=== PATIENT | male | born 1955 | race Caucasian/White ===

== ENCOUNTER 2017-05-25 02:12 | Inpatient (IN) | payer OTHER ==
[~2017-05-25] VITALS: Ht 182.9 cm; Wt 144.9 kg
[2017-05-25 03:09] LABS: BASOPHIL % 0.2 % (0-2); PLATELET COUNT 160 x10^3mcL (130-400)
[2017-05-25 03:10] LABS: CARBON DIOXIDE 27.1 mmol/L (21-32); CHLORIDE SERUM 107 mmol/L (98-107); CREATININE SERUM 0.9 mg/dL (0.7-1.3); GFR1 > 60 mL/min; GLUCOSE SERUM 96 mg/dL (74-106); POTASSIUM SERUM 4.1 mmol/L (3.5-5.1); SODIUM SERUM 145 mmol/L (136-145)
[2017-05-25 03:15] LABS: ALBUMIN 3.6 g/dL (3.4-5.0); ALKALINE PHOSPHATASE 109 U/L (46-116); ALT/SGPT 16 U/L (16-63); AST/SGOT 19 U/L (15-37); BILIRUBIN TOTAL 0.4 mg/dL (0.20-1.00); LIPASE 99 IU/L (73-393); TOTAL PROTEIN, SERUM 6.6 g/dL (6.4-8.2)
[2017-05-25] MEDS ORDERED: XARELTO20 M1 PO (04:28)
[2017-05-25] MEDS ORDERED: ZESTRIL20 MG PO (04:28)
[2017-05-25] MEDS ORDERED: METOPROLOL SUCC50 M2 PO (04:29)
[2017-05-25 05:42] LABS: MAGNESIUM 2.1 mg/dL (1.8-2.4); PHOSPHOROUS 3.4 mg/dL (2.5-4.9)
[2017-05-25 05:46] VITALS: BP 192/108
[2017-05-25 05:49] LABS: CHOLESTEROL/HDL RATIO 2.1
[2017-05-25 05:50] LABS: FREE T4 0.96 ng/dL (0.76-1.46); T4(THYROXINE) 5.8 ug/dL (4.7-13.3)
[2017-05-25] MEDS ORDERED: LASIX40 MG PO (05:52)
[2017-05-25 06:05] LABS: T3 TOTAL 0.87 ng/mL
[2017-05-25 09:49] LABS: microscopic required? NO
[2017-05-25 10:01] LABS: UA SPECIFIC GRAVITY 1.015 (1.005-1.035); urine erythrocyte NEGATIVE (NEGATIVE)
[2017-05-25 10:13] LABS: AMPHETAMINE QUAL UR NONE DETECTED (NEG <=1000)
[2017-05-25 17:11] VITALS: BP 156/87
[2017-05-25 21:38] LABS: AMPHETAMINE QUAL UR NONE DETECTED (NEG <=1000)
[2017-05-25 21:42] VITALS: BP 155/86
[2017-05-26 00:04] VITALS: BP 160/85
[2017-05-26 01:06] VITALS: BP 146/86
[2017-05-26 05:52] VITALS: BP 147/87
[2017-05-26 06:24] LABS: BASOPHIL % 0.2 % (0-2); PLATELET COUNT 149 x10^3mcL (130-400)
[2017-05-26 06:45] LABS: CALCIUM 8.2 mg/dL (8.5-10.1); CARBON DIOXIDE 23.9 mmol/L (21-32); CHLORIDE SERUM 109 mmol/L (98-107); CREATININE SERUM 0.9 mg/dL (0.7-1.3); GFR1 > 60 mL/min; GLUCOSE SERUM 112 mg/dL (74-106); POTASSIUM SERUM 3.9 mmol/L (3.5-5.1); SODIUM SERUM 142 mmol/L (136-145)
[2017-05-26 06:51] LABS: RED CELL DISTRIBUTION WIDTH 14.7 % (11.5-14.5)
[2017-05-26 10:12] VITALS: BP 146/77
[2017-05-26 11:38] VITALS: BP 146/77
== END 2017-05-26 13:32 | disposition home or self-care (01) | DRG 228 ==
LOC: ED 02:12 → DU 04:47
PROVIDERS: Emergency Medicine; Family Medicine; Surgery; ADMIT Internal Medicine
PROC: 0YU50JZ Supplement Right Inguinal Region with Synthetic Substitute, Open Approach (ICD-10-PCS; principal; 2017-05-25 09:30)
DX: K40.31 Unilateral inguinal hernia, with obstruction, without gangrene, recurrent (principal); N17.0 Acute kidney failure with tubular necrosis; I11.0 Hypertensive heart disease with heart failure; I50.42 Chronic combined systolic (congestive) and diastolic (congestive) heart failure; E66.01 Morbid (severe) obesity due to excess calories; I48.2 Chronic atrial fibrillation; E02 Subclinical iodine-deficiency hypothyroidism; Z98.84 Bariatric surgery status; Z95.0 Presence of cardiac pacemaker; Z87.442 Personal history of urinary calculi; Z79.01 Long term (current) use of anticoagulants; Z90.49 Acquired absence of other specified parts of digestive tract; Z68.41 Body mass index [BMI] 40.0-44.9, adult
CPT/HCPCS: 83880; 84439; 94150; C1781; G0480; J0330; J0360; J0690; J2250; J2270; J2405; J2543; J2704; J2710; J3010; J3490; J7030; J7120; Q0092; Q9967

== ENCOUNTER 2017-05-27 14:20 | Emergency (ER) | payer OTHER ==
[~2017-05-27] VITALS: Ht 182.9 cm; Wt 143.3 kg
[~2017-05-27 14:20] MED LIST: LASIX40 MG PO; METOPROLOL SUCC50 M2 PO; XARELTO20 M1 PO; ZESTRIL20 MG PO
[2017-05-27 19:43] VITALS: BP 133/93
== END 2017-05-27 19:43 | disposition home or self-care (01) ==
LOC: ED 14:20
DX: R60.0 Localized edema (principal); I11.0 Hypertensive heart disease with heart failure; I50.9 Heart failure, unspecified; E66.01 Morbid (severe) obesity due to excess calories; I48.2 Chronic atrial fibrillation; E03.9 Hypothyroidism, unspecified; Z95.0 Presence of cardiac pacemaker
CPT/HCPCS: Q0092

== ENCOUNTER 2017-07-17 04:00 | Inpatient (IN) | payer OTHER ==
[~2017-07-17] VITALS: Ht 182.9 cm; Wt 145.1 kg
--- NOTE | 2017-07-17 04:06 | NUR ---
RT AT BEDSIDE FOR BREATHING TX.
--- NOTE | 2017-07-17 04:07 | NUR ---
RECEIVED PT FROM [employer] FOR C/C OF SOB X2 HOURS. PT STATES THAT FOR HE'S BEEN SHORT OF BREATH FOR 2 HOURS, HE WAS LYING IN BED WHEN IT STARTED HAPPENING. PT IS A/OX 4, SPEECH IS CLEAR, AND FOLLOWS COMMANDS. CHEST RISE AND FALL EQUAL AND LABORED. LS CLEAR AND DIMINISHED BILATERAL. PT PLACED ON CARDAIC MONITOR AND VS STABLE AND PLACED ON 2LPM VIA NC. IV STARTED ON THE LT AC, 2OG, PATENT AND FLUSHING WELL. AT BEDSIDE. WILL CONTINUE TO MONITOR.
--- NOTE | 2017-07-17 04:12 | NUR ---
CONTACT LENS POLISHER AT BEDSIDE FOR BLOOD DRAW.
--- NOTE | 2017-07-17 04:32 | NUR ---
PT REPORTS CHEST PAIN. DR LIM MADE AWARE.
[2017-07-17 04:42] LABS: BASOPHIL % 0.5 % (0-2); PLATELET COUNT 160 x10^3mcL (130-400); RED CELL DISTRIBUTION WIDTH 14.5 % (11.5-14.5)
--- NOTE | 2017-07-17 04:42 | NUR ---
MEDICATED PT FOR CP. PT DENIES CP AFTER THE 2ND DOSE OF NITRO. PLEASE SEE EMAR.
[2017-07-17 04:50] LABS: CALCIUM 8.6 mg/dL (8.5-10.1); CARBON DIOXIDE 27.9 mmol/L (21-32); CHLORIDE SERUM 111 mmol/L (98-107); CREATININE SERUM 0.9 mg/dL (0.7-1.3); GFR1 > 60 mL/min; GLUCOSE SERUM 92 mg/dL (74-106); POTASSIUM SERUM 4.1 mmol/L (3.5-5.1); SODIUM SERUM 143 mmol/L (136-145)
[2017-07-17 05:45] LABS: ALBUMIN 3.3 g/dL (3.4-5.0); ALT/SGPT 15 U/L (16-63); AST/SGOT 20 U/L (15-37); BILIRUBIN TOTAL 0.5 mg/dL (0.20-1.00); TOTAL PROTEIN, SERUM 6.3 g/dL (6.4-8.2)
[2017-07-17 05:46] LABS: ALKALINE PHOSPHATASE 90 U/L (46-116)
--- NOTE | 2017-07-17 07:03 | NUR ---
REPORT GIVEN TO BONILLA MONREAL. ALL QUESTIONS AND CONCERNS ADDRESSED.
--- NOTE | 2017-07-17 08:24 | NUR ---
REPORT CALLED TO RASHMI CRYSTAL, HE WILL ASSUME CARE PRIMARY POST TRASNFER.
--- NOTE | 2017-07-17 08:46 | NUR ---
PATIENT HAS BEEN RECEIVED FROM ED VIA [employer]. PATIENT STATED THAT HE WAS ADMITTED FOR SOB AND CHEST PAIN. AT THIS MOMENT THE PATIENT STATES THAT HE FEELS NO CHEST PAIN AT ALL, AND THAT HE HAS NO SHORTNESS OF BREATH. PATIENT IS AMBULATORY. RESPIRATIONS EVEN AND UNLABORED ON 2L NC. TELE MONITOR [address] IV IN LAC PATENT AND WNL. WILL CONTINUE TO MONITOR. ALL SAFETY MEASURES IN PLACE.
[2017-07-17 08:54] VITALS: BP 154/90
[2017-07-17 12:35] VITALS: BP 146/91
--- NOTE | 2017-07-17 13:00 | NUR ---
PATIENT HAS BEEN RESTING IN BED. NO ACUTE CHANGES TO CONDITION. DENIES CHEST PAIN. NO SOB PRESENT. ALL SAFETY MEASURES IN PLACE. PATIENT IS AMBULATORY. WILL CONTINUE TO MONITOR.
[2017-07-17 16:32] VITALS: BP 144/86
--- NOTE | 2017-07-17 19:35 | NUR ---
REPORT GIVEN TO NIGHT NURSE. AT THE MOMENT THE PATIENT IS RESTING IN BED. PATIENT HAS NO SOB, NO CHEST PAIN. PATIENT IS AAOX4. APPEARS CALM. TELE MONITOR [address] IV IN LAC APPEARS WNL. ALL SAFETY MEASURES IN PLACE.
--- NOTE | 2017-07-17 20:00 | NUR ---
PT A/A/O X4. DENIES DIZZINESS AND HEADACHE THUS FAR. BREATH SOUNDS CLEAR. BREATHING EVEN AND UNLABORED ON ROOM AIR. DENIES CHEST PAIN AND PRESSURE. BOWEL SOUNDS ACTIVE. NO C/O N/V AND ABD PAIN. TRACE EDEMA NOTED ON BLE. IV HEPLOCK INTACT ON THE LAC. MADE PT COMFORTABLE. PLACED CALL LIGHT WITH IN REACH. WILL CONTINUE TO MONITOR.
[2017-07-17 21:21] VITALS: BP 131/79
--- NOTE | 2017-07-17 23:00 | NUR ---
PT C/O HEADACHE. GAVE PT TYLENOL PO. PT TOLERATED IT WELL. WILL CONTINUE TO MONITOR.
--- NOTE | 2017-07-18 01:08 | NUR ---
PT RESTING WITH EYES CLOSED. SHOWS NO DISTRESS AND DISCOMFORT WILL CONTINUE TO MONITOR.
--- NOTE | 2017-07-18 03:41 | NUR ---
PT C/O HEADACHE AND NAUSEA. GAVE PT TYLENOL PO AND ZOFRAN IVP. PT TOLERATED IT WELL. WILL CONTINUE TO MONITOR.
--- NOTE | 2017-07-18 05:09 | NUR ---
PT RESTING WITH EYES CLOSED. EASILY AROUSABLE. NO C/O NAUSEA AND HEADACHE THUS FAR. IV HEPLOCK INTACT. MADE PT COMFORTABLE. WILL ENDORSE TO THE AM NURSE ACCORDINGLY.
[2017-07-18 05:58] VITALS: BP 133/81
[2017-07-18 06:36] LABS: CALCIUM 8.7 mg/dL (8.5-10.1); CARBON DIOXIDE 30.7 mmol/L (21-32); CHLORIDE SERUM 109 mmol/L (98-107); CREATININE SERUM 0.9 mg/dL (0.7-1.3); GFR1 > 60 mL/min; GLUCOSE SERUM 106 mg/dL (74-106); POTASSIUM SERUM 3.6 mmol/L (3.5-5.1); SODIUM SERUM 144 mmol/L (136-145)
--- NOTE | 2017-07-18 07:30 | NUR ---
RECEIVED PT IN BED A/A/OX4 DENIES ORDOÑEZ. RESP EVEN AND UNLABORED WITH CLEAR BS BILAT, DENIES ANY SOB/CP/PRESSURE. PACED RHYTHM ON TELE. TRACE EDEMA TO BLE. IV SL. ABD SOFT, OBESE, NONTENDER WITH ACTIVE BS X4. DENIES ANY N/V AT THIS TIME. AMBULATORY, CALL LIGHT IN REACH NEEDS ATTENDED TO.
--- NOTE | 2017-07-18 07:50 | NUR ---
MADE AWARE BY DR. VILLALBA PT WITH BE D/C HOME TODAY. SPOKE WITH PT WHO STATED HE WOULD NOT BE ABLE TO RECEIVE TRANSPORTATION UNTIL AFTER 1200. WILL CONT TO MONITOR.
--- NOTE | 2017-07-18 09:10 | NUR ---
DR. VILLALBA PAGED REGARDING +[facility] NARES, AWAITING CALL BACK.
--- NOTE | 2017-07-18 09:20 | NUR ---
RECEIVED CALL BACK FROM DR. VILLALBA MADE AWARE PT +[facility]ES, MD ORDER TREATMENT WITH BACTROBAN OINT TO NARES ONLY, INQUIRED ABOUT HEBICLENS WASH, PER MD BACTROBAN SUFFICIENT. WILL CONT TO MONITOR.
[2017-07-18 09:46] VITALS: BP 142/85
[2017-07-18 11:42] VITALS: BP 142/85
--- NOTE | 2017-07-18 12:24 | NUR ---
PT PROVIDED WITH D/C HOME INSTRUCTIONS GIVEN MEDICATION AND PRESCRIPTION EDUCATION. MADE AWARE TO SCHEDULE F/U APPT WITH PCP WITH IN 3-5 DAYS. GIVEN VERBAL AND WRITTEN INSTRUCTION ON XARELTO AND CHF. PT VERBALIZED UNDERSTANDING OF INSTRUCTIONS. TELE AND IV D/C'D CATHETER INTACT. PT AMBULATED TO [facility] ACCOMPANIED BY PUBLIC WORKS DIRECTOR. WITH PERSONAL BELONGINGS IN HAND FREE OF ANY APPARENT DISTRESS.
== END 2017-07-18 12:24 | disposition home or self-care (01) | DRG 199 ==
LOC: ED 04:00 → DU 07:19
PROVIDERS: Emergency Medicine; ADMIT Internal Medicine Pulmonary Disease
DX: I16.0 Hypertensive urgency (principal); I50.43 Acute on chronic combined systolic (congestive) and diastolic (congestive) heart failure; I11.0 Hypertensive heart disease with heart failure; Z79.01 Long term (current) use of anticoagulants; I48.2 Chronic atrial fibrillation; T50.1X6A Underdosing of loop [high-ceiling] diuretics, initial encounter; R06.01 Orthopnea; R60.9 Edema, unspecified; I25.10 Atherosclerotic heart disease of native coronary artery without angina pectoris; Z22.322 Carrier or suspected carrier of Methicillin resistant Staphylococcus aureus; Z98.84 Bariatric surgery status; Z95.0 Presence of cardiac pacemaker; Z91.128 Patient's intentional underdosing of medication regimen for other reason; Y92.009 Unspecified place in unspecified non-institutional (private) residence as the place of occurrence of the external cause; Z79.899 Other long term (current) drug therapy; Z87.442 Personal history of urinary calculi
CPT/HCPCS: 36600; 83880; J1940; J2405; Q0092

== ENCOUNTER 2018-02-26 18:15 | Inpatient (IN) | payer OTHER ==
[~2018-02-26] VITALS: Ht 182.9 cm; Wt 141.5 kg
[2018-02-26 19:37] LABS: BASOPHIL % 0.4 % (0-2); PLATELET COUNT 171 x10^3mcL (130-400)
[2018-02-26 19:45] LABS: microscopic required? NO
[2018-02-26 19:48] LABS: CALCIUM 9.2 mg/dL (8.5-10.1); CARBON DIOXIDE 28.8 mmol/L (21-32); CHLORIDE SERUM 108 mmol/L (98-107); CREATININE SERUM 1.1 mg/dL (0.7-1.3); GFR1 > 60 mL/min; GLUCOSE SERUM 92 mg/dL (74-106); POTASSIUM SERUM 3.8 mmol/L (3.5-5.1); SODIUM SERUM 143 mmol/L (136-145)
[2018-02-26 19:51] LABS: ALBUMIN 3.5 g/dL (3.4-5.0); ALKALINE PHOSPHATASE 112 U/L (46-116); ALT/SGPT 19 U/L (16-63); AST/SGOT 21 U/L (15-37); BILIRUBIN TOTAL 0.5 mg/dL (0.20-1.00); HDL CHOLESTEROL 45 mg/dL (40-60); LIPASE 73 IU/L (73-393); TOTAL PROTEIN, SERUM 6.6 g/dL (6.4-8.2); TRIGLYCERIDES 46 mg/dL (<150)
[2018-02-26 19:52] LABS: RED CELL DISTRIBUTION WIDTH 15.3 % (11.5-14.5)
[2018-02-26 19:53] LABS: CHOLESTEROL 108 mg/dL (<200); CHOLESTEROL/HDL RATIO 2.4
[2018-02-26 19:57] LABS: T3 TOTAL 0.86 ng/mL
[2018-02-26 20:04] LABS: urine erythrocyte NEGATIVE (NEGATIVE)
[2018-02-26 20:12] LABS: FREE T4 0.99 ng/dL (0.76-1.46); FREE THYROXINE INDEX 2.2 ug/dL (1.4-4.5); T4(THYROXINE) 5.9 ug/dL (4.7-13.3)
[2018-02-26] MEDS ORDERED: PROTONIX TR40 M1 PO (23:43)
[2018-02-27 00:44] VITALS: BP 179/95
[2018-02-27 01:54] VITALS: BP 138/79
[2018-02-27 05:09] VITALS: BP 144/90
[2018-02-27 06:36] LABS: BASOPHIL % 0.3 % (0-2); PLATELET COUNT 151 x10^3mcL (130-400)
[2018-02-27 06:46] LABS: RED CELL DISTRIBUTION WIDTH 15.2 % (11.5-14.5)
[2018-02-27 07:05] LABS: CALCIUM 8.6 mg/dL (8.5-10.1); CARBON DIOXIDE 27.7 mmol/L (21-32); CHLORIDE SERUM 107 mmol/L (98-107); GFR1 > 60 mL/min; GLUCOSE SERUM 92 mg/dL (74-106); POTASSIUM SERUM 3.6 mmol/L (3.5-5.1); SODIUM SERUM 141 mmol/L (136-145)
[2018-02-27 07:19] VITALS: Ht 182.9 cm; Wt 141.5 kg
[2018-02-27 08:00] VITALS: BP 136/81
[2018-02-27 18:53] VITALS: BP 122/71
[2018-02-27 21:43] VITALS: BP 134/83
[2018-02-28 05:43] VITALS: BP 135/80
[2018-02-28 09:21] VITALS: BP 146/79
[2018-02-28 13:13] VITALS: BP 146/79
== END 2018-02-28 14:10 | disposition home or self-care (01) | DRG 254 ==
LOC: ED 18:15 → MU 23:29
PROVIDERS: Internal Medicine Pulmonary Disease; Specialist
DX: K40.90 Unilateral inguinal hernia, without obstruction or gangrene, not specified as recurrent (principal); E66.01 Morbid (severe) obesity due to excess calories; I10 Essential (primary) hypertension; I48.91 Unspecified atrial fibrillation; Z90.49 Acquired absence of other specified parts of digestive tract; Z95.0 Presence of cardiac pacemaker
CPT/HCPCS: 83880; 84439; J2270; J2405; J3010; J7042; Q9967

== ENCOUNTER 2018-09-11 05:13 | Emergency (ER) | payer OTHER ==
[~2018-09-11] VITALS: Ht 182.9 cm; Wt 146.1 kg
[~2018-09-11 05:13] MED LIST changes: +PROTONIX TR40 M1 PO
[2018-09-11 05:22] VITALS: Ht 182.9 cm; Wt 146.1 kg
[2018-09-11 08:09] LABS: BASOPHIL % 0.2 % (0-2); PLATELET COUNT 165 x10^3mcL (130-400); RED CELL DISTRIBUTION WIDTH 14.4 % (11.5-14.5)
[2018-09-11 08:12] LABS: CALCIUM 9.3 mg/dL (8.5-10.1); CHLORIDE SERUM 109 mmol/L (98-107); CREATININE SERUM 0.9 mg/dL (0.7-1.3); GFR1 > 60 mL/min; GLUCOSE SERUM 96 mg/dL (74-106); POTASSIUM SERUM 3.8 mmol/L (3.5-5.1); SODIUM SERUM 145 mmol/L (136-145)
[2018-09-11 08:17] LABS: ALBUMIN 3.4 g/dL (3.4-5.0); ALKALINE PHOSPHATASE 146 U/L (46-116); ALT/SGPT 59 U/L (16-63); AST/SGOT 33 U/L (15-37); BILIRUBIN TOTAL 0.5 mg/dL (0.20-1.00); TOTAL PROTEIN, SERUM 6.8 g/dL (6.4-8.2)
[2018-09-11 10:08] VITALS: BP 185/122
== END 2018-09-11 10:31 | disposition left against medical advice (07) ==
LOC: ED 05:13
PROVIDERS: Emergency Medicine
DX: R07.89 Other chest pain (principal); K02.9 Dental caries, unspecified; E66.9 Obesity, unspecified; I50.9 Heart failure, unspecified; I11.9 Hypertensive heart disease without heart failure; Z68.41 Body mass index [BMI] 40.0-44.9, adult; Z98.890 Other specified postprocedural states
CPT/HCPCS: 36415; Q0092

== ENCOUNTER 2019-03-28 20:54 | Emergency (ER) | payer OTHER ==
[~2019-03-28] VITALS: Ht 182.9 cm; Wt 140.2 kg
[2019-03-28 21:08] VITALS: Ht 182.9 cm; Wt 140.2 kg
[2019-03-28 21:53] LABS: BASOPHIL % 0.4 % (0-2); PLATELET COUNT 175 x10^3mcL (130-400); RED CELL DISTRIBUTION WIDTH 13.8 % (11.5-14.5)
[2019-03-28 21:55] LABS: CALCIUM 9.6 mg/dL (8.5-10.1); CARBON DIOXIDE 24.6 mmol/L (21-32); CHLORIDE SERUM 111 mmol/L (98-107); GFR1 > 60 mL/min; GLUCOSE SERUM 88 mg/dL (74-106); POTASSIUM SERUM 4.1 mmol/L (3.5-5.1); SODIUM SERUM 143 mmol/L (136-145)
[2019-03-28 22:00] LABS: ALBUMIN 3.6 g/dL (3.4-5.0); ALKALINE PHOSPHATASE 104 U/L (46-116); ALT/SGPT 17 U/L (16-63); AST/SGOT 14 U/L (15-37); BILIRUBIN TOTAL 0.41 mg/dL (0.20-1.00); TOTAL PROTEIN, SERUM 6.5 g/dL (6.4-8.2)
[2019-03-29 00:58] VITALS: BP 122/58
== END 2019-03-29 00:58 | disposition home or self-care (01) ==
LOC: ED 20:54
PROVIDERS: Emergency Medicine
DX: H43.813 Vitreous degeneration, bilateral (principal); I50.9 Heart failure, unspecified; I11.0 Hypertensive heart disease with heart failure; Z95.0 Presence of cardiac pacemaker; Z98.0 Intestinal bypass and anastomosis status; Z90.49 Acquired absence of other specified parts of digestive tract; Z98.890 Other specified postprocedural states
CPT/HCPCS: 36415

== ENCOUNTER 2019-07-10 19:41 | Emergency (ER) | payer OTHER ==
[~2019-07-10] VITALS: Ht 180.3 cm; Wt 140.6 kg
[2019-07-10 20:05] VITALS: Ht 180.3 cm; Wt 140.6 kg
[2019-07-10 20:29] LABS: BASOPHIL % 1.1 % (0-2); PLATELET COUNT 167 x10^3mcL (130-400); RED CELL DISTRIBUTION WIDTH 14.4 % (11.5-14.5)
[2019-07-10 20:42] LABS: CALCIUM 8.4 mg/dL (8.5-10.1); CHLORIDE SERUM 114 mmol/L (98-107); CREATININE SERUM 1.1 mg/dL (0.7-1.3); GFR1 > 60 mL/min; GLUCOSE SERUM 92 mg/dL (74-106); POTASSIUM SERUM 3.9 mmol/L (3.5-5.1); SODIUM SERUM 146 mmol/L (136-145)
[2019-07-10 20:47] LABS: ALBUMIN 3.5 g/dL (3.4-5.0); ALKALINE PHOSPHATASE 98 U/L (46-116); ALT/SGPT 13 U/L (16-63); AST/SGOT 19 U/L (15-37); CHOLESTEROL 116 mg/dL (<200); CHOLESTEROL/HDL RATIO 2.1; HDL CHOLESTEROL 55 mg/dL (40-60); LIPASE 52 IU/L (73-393); TOTAL PROTEIN, SERUM 6.5 g/dL (6.4-8.2); TRIGLYCERIDES 30 mg/dL (<150)
[2019-07-10 20:53] LABS: microscopic required? NO
[2019-07-10 20:58] LABS: UA SPECIFIC GRAVITY >=1.030 (1.005-1.035); urine erythrocyte NEGATIVE (NEGATIVE)
[2019-07-10 21:02] LABS: T3 TOTAL 1.19 ng/mL
[2019-07-10 21:09] LABS: FREE T4 1.03 ng/dL (0.76-1.46); FREE THYROXINE INDEX 2.9 ug/dL (1.4-4.5); T4(THYROXINE) 7.5 ug/dL (4.7-13.3)
[2019-07-11 00:21] VITALS: BP 134/80
== END 2019-07-11 00:21 | disposition home or self-care (01) ==
LOC: ED 19:41
PROVIDERS: Specialist
DX: K40.90 Unilateral inguinal hernia, without obstruction or gangrene, not specified as recurrent (principal); I11.0 Hypertensive heart disease with heart failure; I50.9 Heart failure, unspecified; I49.9 Cardiac arrhythmia, unspecified; Z95.0 Presence of cardiac pacemaker; Z90.49 Acquired absence of other specified parts of digestive tract; Z98.890 Other specified postprocedural states; Z98.84 Bariatric surgery status
CPT/HCPCS: 36415; 83880; 84439; J7030; Q0092